=== PATIENT | male | born 1970 | race Caucasian/White ===

== ENCOUNTER 2025-01-06 15:43 | Day surgery (SDC) | payer OTHER, SELFPAY ==
[2025-01-06] VITALS (22 sets, daily range): BP systolic 90–138; BP diastolic 62–95; BMI 27.4
[2025-01-06 06:56] LABS: % Basophils 0.2 % (0-2); % Immature Granulocytes 0.2 % (0-0.5); % Lymphocytes 13.2 % (20.5-51.1); % Monocytes 8.7 % (1.7-9.3); % Neutrophils 75.7 % (42.2-75.2); Absolute Eosinophils 0.2 10^3/uL (0-0.7); Absolute Lymphocytes 1.1 10^3/uL (1.2-3.4); Absolute Monocytes 0.7 10^3/uL (0.1-0.6); Absolute Neutrophils 6.2 10^3/uL (1.4-6.5); Hematocrit 39.7 % (39.0-52.0); Hemoglobin 13.9 g/dL (13.0-18.0); Mean Corpuscular Hgb 31.9 pg (27.0-31.0); Mean Corpuscular Volume 91.1 fL (80.0-94.0); Nucleated Red Blood Cells % 0 % (-); Platelet Count 143 10^3/uL (130-400); Red Blood Cell Count 4.36 10^6/uL (4.70-6.10); Red Cell Dist. Width 11.9 % (11.5-14.5); White Blood Cell Count 8.2 10^3/uL (4.8-10.8)
[2025-01-06 07:13] LABS: ALT (SGPT) 47 U/L (0-50); AST (SGOT) 39 U/L (17-59); Albumin 4.3 g/dl (3.5-5.0); Alkaline Phosphatase 68 U/L (38-126); Blood Urea Nitrogen 19 mg/dl (9-20); Calcium 9.8 mg/dl (8.4-10.2); Carbon Dioxide 28 mmol/L (22-30); Chloride 106 mmol/L (98-107); Estimated Creatinine Clearance 121 ml/min; Glucose 168 mg/dl (70-99); Potassium 4.1 mmol/L (3.5-5.1); Sodium 143 mmol/L (135-145); Total Bilirubin 1.8 mg/dl (0.2-1.3); Total Protein 6.4 g/dl (6.3-8.2); eGFR > 60.00
--- NOTE | 2025-01-06 07:20 | ED.GENMED ---
History of Present Illness
General
Chief Complaint: Heart Rate Problem
Source: patient
Exam Limitations: none
Time Seen by Provider: 01/06/25 06:49
Nursing documentation reviewed up to this point in time: agreed with
History of Present Illness
History of Present Illness:
Patient with history of CAD, status post cardiac bypass surgery at [facility] 2 years ago, presents to ED after waking up this morning with 'tachycardia'. Pt states that his symptoms lasted approximately 2 hours, which is longer than
previously, but now has resolved spontaneously. Denies associated dizziness, shortness of breath, nausea, chest pain, or diaphoresis. Patient states that he has had number of similar symptoms over the past 10 months. He has spoken with his
nursing program coordinator on multiple occasions, and in fact has worn Holter monitor, during which time, he did not experience any symptoms. His nursing program coordinator has optimized his medications to alleviate his symptoms. Patient does state that his EF is 30%, which
did not improve with bypass surgery. He does experience shortness of breath with palpitations when ambulating to work. Denies fever or chills. Denies coughing. Denies recent change in medications or diet. Denies recent weight gain. Denies
increased leg swelling or pain. Denies recent travel or surgery within the past 12 months.
Past History
Past History
ED Past Medical History: HTN, Hypercholesterolemia, NIDDM, PA, Psychiatric (Anxiety, benzodiazepine abuse) and Other (Anxiety, diabetes, hyperlipidemia)
ED Past Surgical History: Cardiac (Stent)
Social History
Tobacco: Non-smoker
Alcohol: None
Drug: None
Personal: Single
Living: alone
Employment: Not employed
Family History
Family History: Diabetes and Other (Diabetes, lung cancer)
Review of Systems
Review of Systems
Allergies reviewed?: Yes
All Other Systems: ROS reviewed and negative except as documented in HPI and ROS
Constitutional: Reports no symptoms
Respiratory: Reports no symptoms
Cardiac: Reports palpitations
ABD/GI: Reports no symptoms
Musculoskeletal: Reports no symptoms
Skin: Reports no symptoms
Neurological: Reports no symptoms
Phy Exam
Physical Exam
Physical Exam:
Physical Exam
General: no apparent distress, not acutely ill. afebrile
Head: nc/at. eomi
Neck: supple. no meningeal signs.
Heart: s1/s2 regular rate and rhythm, no murmur.
Lungs: no acute respiratory distress. clear bilaterally
Abdomen: normal bowel sounds. not tender.
Neuro: alert and oriented x 3. no focal neurological deficits
Skin: no rash
Psychiatric: well kept. interactive and cooperative
Extremities: no edema. no calf tenderness.
Course
Orders/Labs/Results
Orders:
Orders
01/06/25 06:31
EKG [Electrocardiogram (*1)] Urgent
Reason for Study: Palpitations
EKG- Treatment ONCE
01/06/25 06:45
BNP [NT-proBNP] Urgent
Complete Blood Count/With Diff Urgent
Comprehensive Metabolic Panel Urgent
Magnesium Urgent
Comment: ADD ON
TSH Reflex To Free T4 Urgent
Comment: ADD ON
Troponin I Urgent
01/06/25 07:13
Add On- LAB Urgent
Tests Added?: magnesium, TSH to reflex T4
01/06/25 07:25
CR Chest - 2 Views Urgent
Comment:
Reason For Exam: sob w exertion
01/06/25 09:57
CARDIOLOGY CONSULT Urgent
Consulting Provider: Hannah Wilson
Was physician already notified: Yes
Reason for consult: CP/palpitations
01/06/25 11:39
Electrocardiogram (*1) Urgent
Reason for Study: Palpitations
EKG- Treatment ONCE
01/06/25 12:05
Metoprolol [Lopressor] 5 mg IV NOW STA
01/06/25 12:18
Echo 2D MMode Color/Doppler Routine
Reason for Study: CM, palpitations, CP
01/06/25 14:56
Heparin 1000 Units/500 ml [Heparin] 1,000 units in 500 ml .ROUTE .STK-MED
Heparin Sodium,Porcine/Ns/Pf [Heparin 2000 Units/1000 ml] 2,000 unit in 1,000 ml .ROUTE .STK-MED
Lidocaine HCl/Pf [Xylocaine-Mpf 1% Vial] 100 mg .ROUTE .STK-MED ONE
Nitroglycerin [Tridil] 1,500 mcg .ROUTE .STK-MED ONE
Verapamil Injectable [Isoptin/Verapamil Injection] 5 mg .ROUTE .STK-MED ONE
01/06/25 Dinner
Cholesterol Lowering
At Your Request: Full Participation
Does patient need a safe tray?: No
Cholesterol Lowering: Sodium, 2 Gram
01/06/25 15:24
Midazolam HCl [Versed] 2 mg .ROUTE .STK-MED ONE
01/06/25 15:25
Fentanyl Citrate/Pf [Sublimaze] 100 mcg .ROUTE .STK-MED ONE
Heparin 10,000 units .ROUTE .STK-MED ONE
01/06/25 15:43
Troponin I Urgent
01/06/25 15:52
Metoprolol [Lopressor] 5 mg .ROUTE .STK-MED ONE
01/06/25 16:22
Acetaminophen [Tylenol] 650 mg PO Q4HPRN PRN
Furosemide [Lasix] 20 mg IV NOW STA
01/06/25 16:23
Activity As Directed
Activity Level: Out of Bed- Ad Harleen
Activity Frequency: Ad Harleen
Grocery Specialist Procedure As Directed
Cardiac Cath Procedure: cardiac catheterization
Notify MD As Directed
Notify physician if: immediately for chest pain or bleeding from access site(s)
Radial Artery Hemostasis Method As Directed
Instructions:: 3 mL out at 1 hour post placement of band
3 mL out at 1 1/2 hours post placement of band
3 mL out at 2 hours post placement of band
Off at 2 1/2 hours post placement of band
If any oozing or hemotoma occurs:: re-inflate band and call provider
Site Checks As Directed
Check access site for bleeding/hematoma: Yes
Comment: on arrival, Q15min x4, Q30min x2, Q1 hr x2, Q2 hr x2, Q4 hr or per
protocol
Vascular Checks As Directed
Location: distal to access site - pulse check
Frequency: Other
Comment: on arrival, Q15min x4, Q30min x2, Q1 hr x2, Q2 hr x2, Q4 hr or per protocol
Vital Signs As Directed
Frequency: Other
Additional Instructions:: on arrival, Q15min x4, Q30min x2, Q1 hr x2, Q2 hr x2, then Q4 hr or per unit
protocol
01/06/25 16:24
Admit Patient As Directed
Co-Sign Provider:
Level of Care: Post Proc/Surg Recovery
Assign to:: IVU
Physician / Group: dca
Diagnosis: CAD/Chest pain/NSTEMI
Reason for Overnight Stay: Standard of Care
VTE Contraindication Routine
VTE Mechanical Device Contraindication: Low Risk- LOS < 2 days
Pharmocologic Contraindication: Low Risk- LOS < 2 days
Risk assessment completed and pt is low risk: Yes
PRN Pain Medication Management As Directed
May give lesser potent ordered pain med per pt: Yes
preference::
Protocol:: Medication orders for pain may be administered in a
manner that supports deferring to patient preference
when the pt is:
- Requesting an ordered lesser potent pain medication.
Least to most potent pain medications are defined
as: acetaminophen < NSAID < tramadol < opioids
(morphine, oxycodone, hydromorphone).
- Requesting a lesser dose of the same medication IF
ORDERED.
- Requesting a less intrusive route of administration
if both routes are prescribed by the provider (PO <
IV).
01/06/25 16:27
Dextrose 50%-Water [Dextrose 50% Syringe] 12.5 grams IV [id number] PRN
Glucagon [GlucaGen] 1 mg IM PRN PRN
Bedside Glucose Monitoring As Directed
Frequency: AC&HS
Additional Instructions:: Change to q6h if pt on TPN, tube feeding or not eating
01/06/25 16:30
Insulin Aspart Corrective Mod [Novolog Flexpen-Moderate Resistance] See Protocol SC AC
01/06/25 17:12
Lactate Level [Lactic Acid] Stat
01/06/25 18:00
Atorvastatin [Lipitor] 80 mg PO QPM
01/06/25 20:00
Sacubitril 24/Valsartan 26 [Entresto 24 mg/26 mg] 1 tab PO BID
01/06/25 22:56
Troponin I Routine
01/07/25
HF Check Daily Weights Video Routine
HF Limiting Fluids Video Routine
HF Limiting Sodium Video Routine
HF Recognizing Symptoms Video Routine
HF Taking Medicines Video Routine
HF What is it? Video Routine
HF When to Call for Help Video Routine
01/07/25 06:12
Basic Metabolic Panel IN AM
Cardiovascular Evaluation IN AM
Complete Blood Count/No Diff IN AM
Glycohemoglobin (HgbA1c) IN AM
Troponin I Urgent
01/07/25 08:00
Aspirin Chewable [Low Strength Aspirin] 81 mg PO DAILY
Dapagliflozin [Farxiga] 10 mg PO DAILY
Metoprolol Xl [Toprol Xl] 25 mg PO DAILY
01/07/25 09:27
Change Attending Physician As Directed
Change attending physician to: gurvinder mora
01/07/25 09:45
Furosemide [Lasix] 20 mg IV ONCE ONE
01/07/25 09:54
Clopidogrel Bisulfate [Plavix] 300 mg PO NOW STA
01/07/25 10:00
Code Status As Directed
Resuscitation Status: Full Code
01/07/25 10:02
DX Deep Vein Thrombosis Video Routine
01/07/25 12:00
Ezetimibe [Zetia] 10 mg PO NOON
01/07/25 14:02
Troponin I Routine
01/07/25 18:00
Enoxaparin Sodium [Lovenox] 40 mg SC QPM
01/07/25 20:00
Metoprolol Xl [Toprol Xl] 25 mg PO BID
01/08/25 08:00
Clopidogrel Bisulfate [Plavix] 75 mg PO DAILY
Abnormal Lab Results
01/06/25 01/06/25 01/06/25
06:45 15:43 22:00
RBC 4.36 L 10^6/uL
(4.70-6.10)
MCH 31.9 H pg
(27.0-31.0)
Absolute Lymphs (auto) 1.1 L 10^3/uL
(1.2-3.4)
Absolute Monos (auto) 0.7 H 10^3/uL
(0.1-0.6)
Neutrophils % 75.7 H %
(42.2-75.2)
Lymphocytes % 13.2 L %
(20.5-51.1)
Creatinine
Glucose 168 H mg/dl
(70-99)
Hemoglobin A1c
Total Bilirubin 1.8 H mg/dl
(0.2-1.3)
Troponin I 0.493 H* ng/ml 1.650 H* ng/ml
POC Glucose 200 H mg/dl
(70-99)
01/06/25 01/07/25 01/07/25
22:56 06:12 07:26
RBC 4.43 L 10^6/uL
(4.70-6.10)
MCH 31.8 H pg
(27.0-31.0)
Absolute Lymphs (auto)
Absolute Monos (auto)
Neutrophils %
Lymphocytes %
Creatinine 0.6 L mg/dL
(0.7-1.3)
Glucose 103 H mg/dl
(70-99)
Hemoglobin A1c 6.3 H %
(4.0-5.6)
Total Bilirubin
Troponin I 4.730 H* D ng/ml 8.480 H* D ng/ml
POC Glucose 107 H mg/dl
(70-99)
01/07/25 01/07/25
11:27 14:02
RBC
MCH
Absolute Lymphs (auto)
Absolute Monos (auto)
Neutrophils %
Lymphocytes %
Creatinine
Glucose
Hemoglobin A1c
Total Bilirubin
Troponin I 5.610 H* D ng/ml
POC Glucose 201 H mg/dl
(70-99)
01/07/25 06:12
01/07/25 06:12
Vital Signs
Initial and Last Documented VS:
Initial Vital Signs
Temp Pulse Resp BP Pulse Ox
98.2 F 66 20 138/78 98
01/06/25 06:35 01/06/25 06:35 01/06/25 06:35 01/06/25 06:35 01/06/25 06:35
Last Documented Vital Signs
Temp Pulse Resp BP Pulse Ox
98 F 66 18 113/77 100
01/07/25 12:09 01/07/25 12:08 01/07/25 12:09 01/07/25 12:08 01/07/25 12:09
MDM/Problems Addressed
MDM/Problems Addressed:
Patient noted to become tachycardic during observation in ED, along with subjective 'pop' sensation in his chest. Otherwise patient denies shortness of breath, nausea, dizziness, or diaphoresis. Repeat EKG confirms sinus tachycardia.
Patient evaluated by , cardiology. Plan to proceed with cardiac catheterization this afternoon. Recommends lopressor 5mg iv now.
*EKG
Interpreted by ED Provider?: Yes
EKG Intrepretation Date: 01/06/25
Heart Rate: 66
Rate: normal
Rhythm: sinus
[place]: normal axis
Ischemia: non-specific ST changes
*Critical Care Note
Total Time (30-74mins, 75-104mins- exclusive of procedures): Not Applicable
ED Attending Note
-
Portions of this chart may have been created with voice recognition software.� Occasional wrong word or��sound alike� substitutions may have occurred due to the inherent limitations of voice recognition software.
Discharge Plan
Departure
Patient Disposition: TRIMMER OPERATOR THREE KNIFE
Date of Disposition: 01/06/25
Time of Disposition: 12:08
Admit to: dental laboratory technician
Presentation/result/management discussed w/ accepting MD/DO: Darrius Rosenberg
Discharge Problem:
Abnormal cardiac enzyme level, Palpitations
Interventions
Interventions:
*Risk Screen - Suicide Last Done: 01/06/25 06:33
*General Assessment Last Done: 01/06/25 08:00
*Neglect/Abuse Screening Last Done: 01/06/25 08:00
*ED- Fall Risk Assessment Last Done: 01/06/25 08:00
*Nursing Disposition Last Done: 01/06/25 15:42
ED- Cardiac Assessment Last Done: 01/06/25 08:00
ED- Pulmonary Assessment Last Done: 01/06/25 08:00
Discharge Date and Time
Discharge Date/Time: 01/06/25 15:05
[2025-01-06 07:23] LABS: NT-proBNP 3220 pg/ml; Troponin I 0.493 ng/ml
[2025-01-06 09:17] LABS: TSH Reflex To Free T4 1.25 uIU/ml (0.47-4.68)
--- NOTE | 2025-01-06 10:58 | CON.CAR ---
Addendum entered and electronically signed by Nedra Akers PA-C 01/06/25 13:37:
Records from [facility] including ER visit 12/24/2024, office visit 11/10/2024, echo 03/24/2024 obtained and reviewed. He had CABG times �[facility] to [facility] and SVG to [facility] Dr. Noel. His prior left circumflex stent was noted to be occluded by cath
prior to bypass. As stated below he previously declined ICD. He also declined ZIO monitor at last outpatient office visit. He was previously on torsemide post CABG, however then admitted for DAWSON and dehydration and diuretic as well as Aldactone
were discontinued at that time. He is refused retrial of Aldactone. He previously was on LifeVest however could not tolerate and sent it back. He is on Toprol, Entresto, Jardiance, aspirin, Lipitor, Zetia. Of note he also did have some brief
postop atrial fibrillation which was felt to have resolved. He is not on anticoagulation. Echo from 03/24/2024: EF 30%, severe global hypokinesis, grade 2 diastolic dysfunction, RV function moderately reduced, mild MR, mild TR, mild RI.
Addendum entered and electronically signed by Hannah Wilson DO 01/06/25 13:19:
I saw and examined the patient.
The Dry Roaster's note was reviewed and I agree with the note.
Comment: Patient was seen and examined in ED 22 with cardiac PA. Rajan is a 54-year-old male with past medical history of CAD/PCI and CABG x [address] [facility] in 2021, ischemic cardiomyopathy with EF 30%, hypertension, hyperlipidemia, type 2
diabetes, history of noncompliance due to social and monetary concerns who presents to [facility] due to evaluation of intermittent tachycardia. He states that this has been occurring over the last 9 to 10 months, however has been becoming
more frequent over the last several weeks. He reports that he feels as though his heart is racing, however states it does not fear feel irregular. He reports the feeling of his heart squeezing. He reports sometimes it lasts only 5 to 10 minutes,
other times it last several hours. He has not had any loss of consciousness, however does report some lightheadedness and diaphoresis associated with the episodes. He states he did bring this up with his primary grid maker, Dr. Power at . [facility] and since the episodes were happening infrequently at that time, it was recommended that he consider increasing his metoprolol, which patient refused as he was concerned about being more fatigued. He was then seen for same
symptoms 12/24/2024 at [facility]. He reports that it took several hours but then his heart rate 'broke'. He reports he was not told he had any arrhythmias. He left AMA from [facility]. He reports the last several days he has had more
episodes lasting longer and more frequent. He has also had some associated chest and back pains. Then at 3 AM he awoke with an episode which lasted 2 hours and 10 minutes. It did resolve prior to him coming to the ER. He also reports noting some
swelling in his legs. He states he was previously offered a diuretic, however he refused as he did not want to pee more as he is already on Jardiance. He also previously refused defibrillator, and is fixated on the fact that his pumping function
did not improve post CABG. He lives in a hotel with his cat, and states he walks 1 mile to work every day. He is also concerned about admission due to financial difficulties this could cause. Troponin was 0.493. Cardiology consulted for
evaluation.
General: No acute distress, AAOX3
Heart: Regular, positive S1/S2, 2/6 SM
Lungs: CTA b/l, negative wheezes/rales/rhonchi
Abd: Positive BS, NT/ND, neg rebound/rigidity/guarding
Ext: + 1 edema
Neuro: nonfocal
Plan:
Episodes of chest discomfort with positive troponin and prior history of CABG x [address] [facility]
-Will arrange for left heart catheterization today. Patient is agreeable to this plan and understands if stent is placed he will need to be on dual antiplatelet therapy for at least 1 year.
-CABG OR report being requested in addition to cardiac records from [facility]
-He has medical assistance as well as insurance through his job and has had no difficulty getting his medications. A member of his uatsdin she goes to the pharmacy to picker / packer his medication since he does not drive.
-Repeat 2D echocardiogram.
-Trend troponins.
-Telemetry monitoring.
-Continue aspirin and statin.
Episodes of heart racing with no history of known atrial or ventricular arrhythmias
-Records from [facility] to be requested
-In the emergency department he had an episode of sinus tachycardia as well as PAT
-IV Lopressor 5 mg administered x 1
-Check TSH
-Monitor telemetry
Ischemic cardiomyopathy with a EF approximately 30% per last echo available for review
-Appears mildly volume overloaded
-proBNP 3220.
-Patient agreeable to IV Lasix during this hospitalization; will give a dose following cardiac catheterization and follow volume status
-Patient on Entresto and Jardiance
-Has previously declined ICD which was briefly reviewed in the ER and he admits that he has declined this therapy
-Follows with Dr. Conner, heart failure at [facility]
History of type 2 diabetes mellitus
-Management per medicine
-Hold metformin in preparation for left heart catheterization
Further recommendations following left heart catheterization as well as echo
Original Note:
Consultation
Consultation Request
Date/Time Consultation Performed: 01/06/25
Requesting Provider: Dr. Salmon
Performing Provider: Nedra Akers PA-C for Dr. Wilson
Reason for Consultation: elevated HR, elevated troponin
Medical History
-
Chief Complaint: elevated HR
History of Present Illness:
Patient is a 54-year-old male with past medical history of CAD status post CABG x [address] [facility] in 2021, ischemic cardiomyopathy with EF 30%, hypertension, hyperlipidemia, type 2 diabetes, history of noncompliance due to social and monetary
concerns who presents to [facility] due to evaluation of intermittent tachycardia. He states that this has been occurring over the last 9 to 10 months, however has been becoming more frequent over the last several weeks. He reports that
he feels as though his heart is racing, however states it does not fear feel irregular. He reports the feeling of his heart squeezing. He reports sometimes it lasts only 5 to 10 minutes, other times it last several hours. He has not had any loss
of consciousness, however does report some lightheadedness and diaphoresis associated with the episodes. He states he did bring this up with his primary grid maker, Dr. Power at [facility] and since the episodes were happening
infrequently at that time, it was recommended that he consider increasing his metoprolol, which patient refused as he was concerned about being more fatigued. He was then seen for same symptoms 12/24/2024 at [facility]. He reports that
it took several hours but then his heart rate 'broke'. He reports he was not told he had any arrhythmias. He left AMA from [facility]. He reports the last several days he has had more episodes lasting longer and more frequent. He has also had
some associated chest and back pains. Then at 3 AM he awoke with an episode which lasted 2 hours and 10 minutes. It did resolve prior to him coming to the ER. He also reports noting some swelling in his legs. He states he was previously offered
a diuretic, however he refused as he did not want to pee more as he is already on Jardiance. He also previously refused defibrillator, and is fixated on the fact that his pumping function did not improve post CABG. He lives in a hotel with his
cat, and states he walks 1 mile to work every day. He is also concerned about admission due to financial difficulties this could cause. Troponin was 0.493. Cardiology consulted for evaluation. He denies cardiac catheterization since his bypass
surgery. He denies recent use of stimulants, significant caffeine.
PMH:
CAD status post CABG x [address] [facility] in 2021
Ischemic cardiomyopathy with EF 30%
Hypertension
Hyperlipidemia
Type 2 diabetes
History of noncompliance due to social and monetary concerns
Past Medical History
Past Medical History: Other (in HPI)
Social History
Tobacco: Non-Smoker
Alcohol: None
Living: Other (in hotel)
Employment: Employed
Family History
Family History: CAD, Diabetes and Hypertension
Allergies / Home Medications
Allergy/AdvReac Type Severity Reaction Status Date / Time
No Known Allergies Allergy Verified 10/20/22 16:17
�Medication �Instructions �Recorded �Confirmed �Type
aspirin 81 mg tablet,delayed 81 mg PO DAILY Blood clot 08/16/22 08/16/22 History
release prevention/tx
atorvastatin 80 mg tablet 80 mg PO QPM High cholesterol 08/16/22 08/16/22 History
carvedilol 3.125 mg tablet 3.125 mg PO HS Blood pressure 08/16/22 08/16/22 History
lisinopril 2.5 mg tablet 2.5 mg PO DAILY Blood pressure 08/16/22 08/16/22 History
metformin 500 mg tablet 500 mg PO BID Diabetes 08/16/22 08/16/22 History
clopidogrel 75 mg tablet 75 mg PO DAILY #30 tabs 08/20/22 Rx
glimepiride 4 mg tablet 4 mg PO DAILY #30 tabs 08/20/22 Rx
amoxicillin 500 mg tablet 500 mg PO BID #20 tabs 10/20/22 Rx
Review of Systems
-
History Source: Patient
All other systems: Negative unless noted
Physical Exam
Vital Signs
Temp Pulse Resp BP Pulse Ox
98.4 F 62 13 113/78 99
01/06/25 07:11 01/06/25 09:30 01/06/25 09:30 01/06/25 09:00 01/06/25 09:30
Lab Results
01/06/25 06:45
01/06/25 06:45
Troponin I 0.493 ng/ml H* 01/06/25 06:45
Xmo-W-Asoradbxmqn Pept 3220 pg/ml 01/06/25 06:45
Physical Exam
General: No Apparent Distress and Comfortable
HEENT: Normocephalic, Anicteric and Moist Mucous Membranes
Respiratory: Clear and Non Labored Respirations
Cardiac: S1/S2 and Regular Rhythm
GI: Soft, Non Tender, Non Distended and Normal Bowel Sounds
Musculoskeletal: No Clubbing, No Cyanosis and Edema (1+ of B/L ankles)
Skin: Warm and Dry
Neuro: AO x 3
Impression / Plan
-
Primary Instrumentation Instructor:Dr. Power at [facility]
Primary Heart failure specialist: Dr. Conner [facility]
Assessment:
Presentation with intermittent heart racing
Elevated troponin
CAD status post CABG x [address] at [facility] in 2021
Ischemic cardiomyopathy with EF 30%
Hypertension
Hyperlipidemia
Type 2 diabetes
History of noncompliance due to social and monetary concerns
ECHO 08/19/22: EF 30 to 35%, LV severely dilated, global hypokinesis with inferior lateral, basal septal, basal inferior akinesis, stage I diastolic dysfunction, mild to moderate MR
Plan:
-Patient presents with intermittent episodes of heart racing, increasing in frequency and duration over the last 9 months. he reports over the last several days noting chest and back discomfort and diaphoresis associated with episodes. Trop 0.493.
History of CABG x2 at [facility] 2021.
-records requested for review from [facility]
-trend trops
-continue asa, statin
-check echo
-NPO for cardiac cath today
-follow on tele. would recommend increasing OP toprol from 25mg BID to 50mg BID if BP tolerates
-proBNP 3220. with LE edema. suspect component of CHF. would diurese post cath. suspect needs diuretic as OP
-awaiting official med reconciliation
-CM consult
Data Reviewed
-
EKG: Tracing Personally Visualized and interpreted
Radiology: Report Reviewed by me
Medical Tests (Nuc Med, Echo etc): Report Reviewed by me
Labs: Labs Reviewed by me
Old Records: Requested and Reviewed
[2025-01-06] MEDS: LOPRESSOR 5 MG IV (12:26)
[2025-01-06 17:22] LABS: Glucose - Point of Care 82 mg/dl (70-99)
[2025-01-06 17:39] LABS: Lactic Acid 0.8 mmol/L (0.7-2.0)
[2025-01-06] MEDS: NOVOLOG FLEXPEN-MODERATE RESISTANCE SC (17:46)
[2025-01-06] MEDS: LASIX 20 MG IV (17:49)
[2025-01-06] MEDS: LIPITOR 80 MG PO (17:49)
[2025-01-06] MEDS: ENTRESTO 24 MG/26 MG 1 TAB PO (19:41)
--- NOTE | 2025-01-06 19:47 | PTCARENOTE ---
Pt received post cardiac cath done via right radial artery. Radial band in place, no sign of bleeding or hematoma. Pt denied any discomfort but was very cognizant of his heart rate, sinus tach @ 115-120. Troponin level still rising ,
notified, will check next level at 23:00. Pt given lasix post procedure, diuresing well.
--- NOTE | 2025-01-06 19:49 | ITS.CL.CATH ---
Film Or Tape Librarian - Catheterization
Cardiac Catheterization
Procedure Report:
LEFT HEART CATHETERIZATION
Date of Procedure: January 06, 2025
Referring: Hannah Wilson
PROCEDURES:
1. Left heart catheterization, coronary angiogram.
2. Selective graft angiography.
3. Ultrasound-guided access.
4. Moderate sedation.
INDICATION: Concern for acute coronary syndrome
ACCESS: Left radial artery, 6 [place] sheath, and ultrasound-guided
Ultrasound was utilized for vascular access. The radial artery was visualized under ultrasound, and the vessel was patent and pulsatile. An image was stored permanently in the patient's medical record. Under direct ultrasound guidance, a 6 [place]
sheath was inserted into the artery using a micropuncture kit through a modified Seldinger technique.
HEMODYNAMICS : (mmHg)
AO (s/d) : 114/78
LV (s/d) : 115/17
LVEDP : 27
CORONARY FINDINGS
CORONARY FINDINGS
DOMINANCE: Right
LEFT MAIN: The left main artery is a large-caliber vessel with mild distal tapering of 10 to 20%. It gives rise to the left anterior descending artery and the left circumflex artery.
LEFT ANTERIOR DESCENDING: The left anterior descending artery is a medium to large caliber vessel with 100% occlusion in the mid vessel with distal vessel being perfused by the patent HOLLOWAY graft. Moderate to severe diffuse atherosclerotic plaque in
the distal to apical LAD. The LAD gives off 1 very small diffusely disease diagonal branch.
CIRCUMFLEX: The circumflex is 100% occluded on the proximal edge of the previously stented segment. Left circumflex territory being filled by patent saphenous vein graft to OM with significant diffuse [place] coronary disease.
RIGHT CORONARY ARTERY: The right coronary artery is a dominant vessel that has a 60-70% stenosis in its midportion. The PDA is small but patent. There is a medium caliber posterolateral branch that is 100% occluded proximally and fills via left to
right collaterals
GRAFT ANTIOGRAPHY:
1. HOLLOWAY to LAD is widely patent with [place] LAD with moderate to severe diffuse atherosclerotic plaque and otherwise very small caliber vessels.
2. Saphenous vein graft to OM: Graft is widely patent with moderate to severe diffuse atherosclerotic plaque in the [place] vessels which are also small caliber vessels.
SEDATION: 37 minutes of procedural sedation was utilized. An independent medical fee clerk was present to assist with and help manage the patient's level of consciousness and physiologic status.
RADIATION SUMMARY: Fluoro Time (min): 7.0, Dose (mGy): 530, DAP (Gy.cm2) : 7.7
Closure Device: Vascular band over left radial artery, 10 cc of air.
CONCLUSIONS
1. Significant multivessel coronary artery disease.
2. HOLLOWAY and saphenous vein graft are widely patent.
3. Elevated LVEDP at 27 mmHg.
RECOMMENDATIONS
1. For diffusely diseased small caliber [place] coronary artery disease, recommend aggressive medical therapy as there are no ideal options from a percutaneous intervention standpoint.
2. Aggressive management of cardiovascular risk factors.
3. Optimization of goal-directed medical therapy for ischemic cardiomyopathy.
4. Aggressive IV diuresis.
5. EP evaluation for possible atrial tachycardia.
6. Patient continues to refuse ICD similar to before.
Yelena Roldan MD, FACC, [facility]
--- NOTE | 2025-01-06 20:45 | PTCARENOTE ---
Patient received at change of shift sitting at the edge of the bed. Denies chest pain. Only complaint is feeling his heart racing. Sinus tach on the monitor. Oxygen saturation on room air 95-98% on room air. TR band removed from left radial cath
site without incident. Gauze and tegaderm applied. Radial pulses palpable. Call rose within reach. Plan of care discussed. Care ongoing.
[2025-01-06 22:02] LABS: Glucose - Point of Care 200 mg/dl (70-99)
[2025-01-07] VITALS (10 sets, daily range): BP systolic 92–113; BP diastolic 58–79; BMI 26.3
[2025-01-07 06:24] LABS: Hemoglobin 14.1 g/dL (13.0-18.0); Mean Corp Hgb Conc. 35.3 g/dL (33.0-37.0); Mean Corpuscular Hgb 31.8 pg (27.0-31.0); Mean Corpuscular Volume 90.3 fL (80.0-94.0); Mean Platelet Volume 8.8 fL (7.4-10.4); Platelet Count 151 10^3/uL (130-400); Red Blood Cell Count 4.43 10^6/uL (4.70-6.10); Red Cell Dist. Width 11.9 % (11.5-14.5); White Blood Cell Count 8.3 10^3/uL (4.8-10.8)
[2025-01-07 06:46] LABS: Blood Urea Nitrogen 19 mg/dl (9-20); Calcium 9.4 mg/dl (8.4-10.2); Carbon Dioxide 28 mmol/L (22-30); Chloride 106 mmol/L (98-107); Estimated Creatinine Clearance > 125 ml/min; Glucose 103 mg/dl (70-99); HDL Cholesterol 36 mg/dl; LDL Cholesterol, Calculated 47 mg/dl; Potassium 3.9 mmol/L (3.5-5.1); Sodium 141 mmol/L (135-145); Total Cholesterol 93 mg/dl (50-199); Triglyceride 51 mg/dl (10-149); Very Low Density Lipoprotein 10 mg/dl (0-30); eGFR > 60.00
[2025-01-07 07:27] LABS: Glucose - Point of Care 107 mg/dl (70-99)
[2025-01-07] MEDS: ENTRESTO 24 MG/26 MG PO ×2 (08:00→22:42)
[2025-01-07] MEDS: NOVOLOG FLEXPEN-MODERATE RESISTANCE SC ×2 (08:24→17:20)
[2025-01-07] MEDS: FARXIGA 10 MG PO (08:25)
[2025-01-07] MEDS: LOW STRENGTH ASPIRIN 81 MG PO (08:25)
[2025-01-07] MEDS: TOPROL XL 25 MG PO ×2 (08:25→20:44)
--- NOTE | 2025-01-07 09:27 | HPS.HSE ---
Family Physician
-
Family Physician: GIULIA Sands
Chief Complaint
-
Palpitations and chest discomfort
History of Present Illness
54 y/o M with PMHx:
CAD s/p CABG x 2
DM2
Chronic HFrEF/ICM, EF 30%, declined ICD in the past, was on Lifevest but could not tolerate it
Prior diagnosis of Sinus Tachy
Essential hypertension
Hyperlipidemia
h/o medical noncompliance
who presented 01/06/25 with CC palpitations and chest discomfort. He reports that over the last 9 to 10 months he has been having intermittent tachycardia. He could sense his heart racing but did not note any sensation of the rhythm being irregular.
He felt chest tightness. States that sometimes these episodes last 5 to 10 minutes but at other times they can last for hours. Sometimes he has some lightheadedness and diaphoresis with these episodes but denies any syncope of note the patient
has a history of medical noncompliance. He has declined ICD in the past. He was also on a LifeVest in the past but cannot tolerated and return the LifeVest. He was recently treated at [facility]. His slubber tender, Dr. Power,
recommending increasing his metoprolol but he refused due to concerns that it would make him more tired. The patient left AGAINST MEDICAL ADVICE from [facility]. On January 07, 2025 around 3 AM he had an episode of tachycardia that lasted over 2
hours. This awoke him from sleep. He presented to [facility] for this reason. January 06, 2025 the patient underwent cardiac catheterization that showed [place] coronary disease. No intervention was performed. Case discussed
with cardiology. Patient is currently being diuresed for acute on chronic heart failure with reduced ejection fraction.
Medical History
Past Medical History
Past Medical History: Reports Other (CAD s/p CABG x 2 DM2 Chronic HFrEF/ICM, EF 30%, declined ICD in the past, was on Lifevest but could not tolerate it Prior diagnosis of Sinus Tachy Essential hypertension Hyperlipidemia h/o medical noncompliance)
Past Surgical History: Reports Other (CABG, otherwise N/A)
Social History
Tobacco: Non-smoker
Alcohol: None
Drug: None
Family History
Family History: Not pertinent
Allergies / Home Medications
Allergies reflects when Allergies were last updated in [employer].
Home Medications with original date entered in [employer]
Allergy/Medication List:
Allergies
Allergy/AdvReac Type Severity Reaction Status Date / Time
No Known Allergies Allergy Verified 10/20/22 16:17
Home Medications
atorvastatin 80 mg tablet 80 mg PO QPM High cholesterol 08/16/22
metformin 500 mg tablet 500 mg PO BID Diabetes 08/16/22
aspirin 325 mg tablet 325 mg PO DAILY Blood Clot Prevention/Tx 01/06/25
empagliflozin 25 mg tablet (Jardiance) 25 mg PO DAILY Diabetes 01/06/25
ezetimibe 10 mg tablet 10 mg PO NOON High Cholesterol 01/06/25
ibuprofen 800 mg tablet 800 mg PO Q8HPRN PRN moderate pain 01/06/25
metoprolol succinate 25 mg tablet,extended release 24 hr 25 mg PO DAILY Heart Disease/Condition 01/06/25
sacubitril 24 mg-valsartan 26 mg tablet (Entresto) 1 tab PO BID Heart Disease/Condition 01/06/25
Review of Systems
-
History Source: Patient
A 12 point ROS was completed and negative except as noted: Yes
Physical Exam
Vital Signs
Vital Signs
Temp Pulse Resp BP Pulse Ox
97.4 F 77 18 104/79 97
01/07/25 07:28 01/07/25 08:00 01/07/25 07:28 01/07/25 07:28 01/07/25 08:20
Physical Exam
General: Other (.)
Laboratory Results
-
01/07/25 06:12
01/07/25 06:12
Laboratory Results
Lactic Acid 0.8 mmol/L (0.7-2.0) 01/06/25 17:12
Total Bilirubin 1.8 mg/dl (0.2-1.3) H 01/06/25 06:45
AST 39 U/L (17-59) 01/06/25 06:45
ALT 47 U/L (0-50) 01/06/25 06:45
Alkaline Phosphatase 68 U/L (38-126) 01/06/25 06:45
Troponin I 8.480 ng/ml H* D 01/07/25 06:12
Impression/Plan
-
Gen: NAD, AAOx3.
Eyes: EOMI, PERRLA, no scleral icterus.
Neck: supple.
CV: RRR, +S1/S2, no m/r/g.
Resp: CTAB, no rales, wheezes, or rhonchi.
Abd: +BS, soft, NT, ND
Skin: No rashes. trace ankle edema
Neuro: CN 2-12 intact, non-focal.
Psych: Normal mood and affect.
NSTEMI:
-s/p C 01/06/25 with negative coronary disease, no intervention performed. [facility] as per discussion with cardiology.
-cont ASA/Plavix/statin/BB
Acute on chronic HFrEF:
-echo done yesterday, read pending
-cont GDMT noting that this is limited by pt's medical noncompliance
-cont Entresto/Jardiance/BB
-pt continues to refuse ICD
-Lasix 20mg IV given today
Tachycardia:
-Case discussed with cardiology. Previously it was reported that the patient had sinus tachycardia although he has abrupt onset and end of his tachycardia. EP to see the patient.
-Monitor on telemetry
-cont BB
DM2:
-SSI/accuchecks/diabetic diet
-a1c 6.3%
Essential HTN:
-cont Entresto/BB
HLD:
-cont statin/Zetia
FULL/Lovenox
[2025-01-07 09:30] LABS: Glycohemoglobin (HgbA1c) 6.3 % (4.0-5.6)
--- NOTE | 2025-01-07 09:38 | W.PN.CARDCBS ---
Addendum entered and electronically signed by Nedra Akers PA-C 01/07/25 10:26:
reviewed tele with EP, felt to be most consistent with an atrial tachycardia. toprol increased to 25mg BID. follow on tele.
Addendum entered and electronically signed by Santana Crabtree MD 01/07/25 10:07:
I saw and examined the patient.
The SOUBRETTE or PA's note was reviewed and I agree with the note.
Comment: General: Well developed, well nourished in NAD.
Neck: Supple, no JVD, HJR, carotids +2 B/L, no bruits bilaterally.
Heart: Non displaced PMI, RRR, no murmurs, No S3, S4, no rubs.
Lungs: Scattered rhonchi
Extremities: No clubbing, cyanosis or edema bilaterally.
Neuro: Grossly nonfocal, awake, alert and oriented x3.
He feels well. He feels he has taken a lot of fluid off. He wishes to be discharged by Friday to take care of his cat. Will continue IV Lasix. Telemetry with brief episodes of likely atrial tachycardia and will review with EP. Will increase
Toprol. Will add Plavix. Check echocardiogram.
Original Note:
Today's Communication / Plan
-
Continue diuresis
Follow on telemetry. EP to review. Consider increasing beta-keenan
Add Plavix
Echo pending
Impression / Plan
-
Primary Marketing Research Coordinator:Dr. Power at [facility]
Primary Heart failure specialist: Dr. Conner [facility]
Assessment:
Presentation with intermittent heart racing
Intermittent tachycardia, concern for atrial tachycardia
Acute HFrEF
NSTEMI
CAD
status post LCx stent 2020
prior LCx stent occluded by cath 2022
status post CABG x 2 HOLLOWAY to LAD and SVG to OM1 at [facility] in 08/2023, Dr. Noel
Brief post op afib without known recurrence
Ischemic cardiomyopathy with EF 30%
Hypertension
Hyperlipidemia
Type 2 diabetes
History of noncompliance due to social and monetary concerns
ECHO 08/19/22: EF 30 to 35%, LV severely dilated, global hypokinesis with inferior lateral, basal septal, basal inferior akinesis, stage I diastolic dysfunction, mild to moderate MR
Plan:
- Patient presented with intermittent heart racing
- He had recent ER visit to [facility] 12/24 and this was felt to be sinus tachycardia. On review of telemetry overnight, he has very clear starting and stopping points and when in tachycardia it is pegged and 110-120 range. Will review with EP.
Have high suspicion for atrial tachycardia versus atypical atrial flutter. would attempt to increase BB. not presently on OAC. follow on tele
- trop up to 8, trend to peak. Status post cardiac catheterization 01/06, Prior bypass grafts are patent with severe [place] vessel disease, no intervention required, suspected small vessel disease. Continue aspirin. add plavix
- LDL 47. continue statin, zetia
- proBNP 3220 and wedge was elevated at 27 by cath. s/p 20mg IV lasix 01/06. will give another 20mg IV lasix today. likely needs daily diuretic on DC however he has been hesitant to do this due to concern for frequent urination. Cr stable
- CHF education
- continue BB, entresto, jardiance. consider addition of aldactone, although he has history of DAWSON/dehydration in setting of being on both aldactone and diuretic in past.
- echo pending
- he has previously refused an ICD. was unable to tolerate lifevest
- d/w nursing. d/w hospitalist
Progress Note - Marketing Research Coordinator
Subjective
Date of Service: January 07, 2025
Reports remains with some ankle edema. No shortness of breath. Remains with intermittent palpitations
Objective
Labs:
01/07/25 06:12
01/07/25 06:12
Labs
Hgb 14.1 g/dL (13.0-18.0) 01/07/25 06:12
Hct 40.0 % (39.0-52.0) 01/07/25 06:12
Plt Count 151 10^3/uL (130-400) 01/07/25 06:12
Sodium 141 mmol/L (135-145) 01/07/25 06:12
Potassium 3.9 mmol/L (3.5-5.1) 01/07/25 06:12
BUN 19 mg/dl (9-20) 01/07/25 06:12
Creatinine 0.6 mg/dL (0.7-1.3) L 01/07/25 06:12
Glucose 103 mg/dl (70-99) H 01/07/25 06:12
Troponins
01/06/25 01/06/25 01/06/25
06:45 15:43 22:56
Troponin I 0.493 H* 1.650 H* 4.730 H* D
01/07/25
06:12
Troponin I 8.480 H* D
Vital Signs and I&O:
Vital Signs
Temp Pulse Resp BP Pulse Ox
97.4 F 77 18 104/79 97
01/07/25 07:28 01/07/25 08:00 01/07/25 07:28 01/07/25 07:28 01/07/25 08:20
Vital Signs
Temp Pulse Resp BP Pulse Ox
97.4 F 77 18 104/79 97
01/07/25 07:28 01/07/25 08:00 01/07/25 07:28 01/07/25 07:28 01/07/25 08:20
Intake & Output
01/05/25 01/06/25 01/07/25 01/08/25
07:59 07:59 07:59 07:59
Intake Total 120 / 120
Output Total 2049
Balance -2049 120 / 120
Physical Exam
Physical Exam
GEN: No distress, awake, alert, oriented x3
HEENT: supple, anicteric, mmm, EOMI
LUNGS: CTA bilaterally, no wheezes/rales
CV: Reg, S1/S2, no murmur
ABD: soft, BS+, NT/ND
EXT: No cyanosis, clubbing. 1+ edema of bilateral lower extremity
NEURO: Gross non-focal
SKIN: Warm, pink, dry. No rash
[2025-01-07] MEDS: PLAVIX 300 MG PO (10:28)
[2025-01-07] MEDS: LASIX 20 MG IV (10:29)
--- NOTE | 2025-01-07 11:07 | CM ---
Chart reviewed. Patient is independent of ADLS, lives alone in a Motel Room, 1st floor, 1 MERCED, 0 DME. Plan is for the patient to return home. CM to follow
[2025-01-07 11:28] LABS: Glucose - Point of Care 201 mg/dl (70-99)
[2025-01-07] MEDS: NOVOLOG FLEXPEN-MODERATE RESISTANCE 3 UNITS SC (11:28)
[2025-01-07] MEDS: ZETIA 10 MG PO (11:54)
[2025-01-07 17:11] LABS: Glucose - Point of Care 103 mg/dl (70-99)
[2025-01-07] MEDS: LIPITOR 80 MG PO (17:35)
[2025-01-07] MEDS: LOVENOX 40 MG SC (17:36)
--- NOTE | 2025-01-07 18:20 | PTCARENOTE ---
Pt OOB walking frequently without problem. Troponin level peaked at 8.48. Telemetry shows sinus rhythm @60's all day, no episodes of atrial tachycardia, toprol dose increased. Pt states understanding of plan of care. Pt encouraged to learn about CHF
with his lower EF. Morning dose of Entresto held for low BP and big diuresis with lasix.
[2025-01-07 21:29] LABS: Glucose - Point of Care 166 mg/dl (70-99)
--- NOTE | 2025-01-07 22:00 | PTCARENOTE ---
Rec'd pt at change of shift. Pt AAO*3 but anxious, VSS, and SR on TELE monitor in the 60's. Pt reports having heart racing sensation last night. No variations or alarms noted on TELE monitor however at this time. Pt denies having any pain or
discomfort. Explained plan of care to pt and pt verbalizes anxiety and concern for possible ICD placement in the future. Pt now resting with call rose in reach and plan of care ongoing. See MAR and flowchart for full pt care and assessment.
--- NOTE | 2025-01-07 22:42 | PTCARENOTE ---
20:00 dose of Entresto held due to low bp. GIULIA Armas notified and provided order to hold 20:00 dose. Pt updated and plan of care ongoing.
[2025-01-08 04:40] VITALS: BP 116/85
[2025-01-08 04:44] VITALS: BMI 26.5
[2025-01-08 07:12] LABS: Glucose - Point of Care 119 mg/dl (70-99)
[2025-01-08] MEDS: NOVOLOG FLEXPEN-MODERATE RESISTANCE SC (07:36)
--- NOTE | 2025-01-08 08:10 | W.PN.HOSP.TC ---
Today's Communication/Plan
-
d/c
Assessment / Plan
Assessment / Plan
Gen: NAD, AAOx3.
Eyes: EOMI, PERRLA, no scleral icterus.
Neck: supple.
CV: remains RRR, +S1/S2, no m/r/g.
Resp: remains CTAB, no rales, wheezes, or rhonchi.
Abd: +BS, soft, NT, ND
Skin: No rashes. very trace ankle edema
Neuro: CN 2-12 intact, non-focal.
Psych: Normal mood and affect.
NSTEMI:
-s/p LHC 01/06/25 with negative coronary disease, no intervention performed. Official report will be in [facility] today as per discussion with cardiology.
-cont ASA/Plavix/statin/BB
Acute on chronic HFrEF:
-echo done yesterday, read pending
-cont GDMT noting that this is limited by pt's medical noncompliance
-cont Entresto/Jardiance/BB
-pt continues to refuse ICD
-s/p IV Lasix
-d/c on Lasix 40mg PO daily
Tachycardia:
-EP reviewed tele which showed A-tach
-BB increased
DM2:
-SSI/accuchecks/diabetic diet
-a1c 6.3%
Essential HTN:
-cont Entresto/BB
HLD:
-cont statin/Zetia
FULL/Lovenox
Medically cleared for discharge as per discussion with Dr. Crabtree.
Total time spent on d/c = 33 min. This included today's physical exam, progress note, review of laboratory and diagnostic data, preparation of discharge documents and prescriptions, and discussions about the pt's hospital course and discharge plan
with the patient and other medical appliance maker involved in the patient's care.
Anticipated Discharge: Today
Subjective/Interval History
-
Date of Service: January 08, 2025
No new complaints.
Objective Data
-
Vital Signs:
Vital Signs
Temp Pulse Resp BP Pulse Ox
97.6 F 69 16 116/85 96
01/08/25 07:23 01/08/25 04:40 01/08/25 07:23 01/08/25 04:40 01/08/25 07:23
I&O
01/07/25 01/08/25 01/09/25
06:59 06:59 06:59
Intake Total /
Output Total 2049
Balance -2049 / -2049 840 / 840
[2025-01-08] MEDS: FARXIGA 10 MG PO (08:29)
[2025-01-08] MEDS: LOW STRENGTH ASPIRIN 81 MG PO (08:29)
[2025-01-08] MEDS: PLAVIX 75 MG PO (08:29)
[2025-01-08] MEDS: TOPROL XL 25 MG PO (08:29)
[2025-01-08] MEDS: ENTRESTO 24 MG/26 MG 1 TAB PO (08:29)
[2025-01-08] MEDS: LASIX 40 MG PO (08:29)
--- NOTE | 2025-01-08 08:33 | W.PN.CARDCBS ---
Today's Communication / Plan
-
Stable cardiology status for discharge on Lasix 40 mg daily
Follow-up at [facility]
Discussed with primary service
Impression / Plan
-
Primary Front End Loader Operator:Dr. Power at [facility]
Primary Heart failure specialist: Dr. Conner [facility]
Assessment:
Presentation with intermittent heart racing
atrial tachycardia
Acute HFrEF
NSTEMI/peak troponin 8.5/catheterization 01/06/25 with stable CAD
CAD
status post LCx stent 2020
prior LCx stent occluded by cath 2022
status post CABG x 2 HOLLOWAY to LAD and SVG to OM1 at [facility] in 08/2023, Dr. Noel
Brief post op afib without known recurrence
Ischemic cardiomyopathy with EF 30%
Hypertension
Hyperlipidemia
Type 2 diabetes
History of noncompliance due to social and monetary concerns
Echocardiogram 01/06/2025: Ejection fraction 15 to 20%, global hypokinesis with worse hypokinesis in the inferior and inferolateral arenas, mild to moderate MR, PA systolic 55 mmHg
Catheterization 01/06/2025: Significant multivessel coronary disease, HOLLOWAY and vein graft are widely patent, elevated LVEDP at 27 mmHg
ECHO 08/19/22: EF 30 to 35%, LV severely dilated, global hypokinesis with inferior lateral, basal septal, basal inferior akinesis, stage I diastolic dysfunction, mild to moderate MR
Plan:
He wishes to be discharged to go take care of his cat
He has been on room air
Will change to Lasix 40 mg daily and check renal profile in 1 week
He has follow-up with his outpatient heart failure specialist at [facility] Dr. Conner
Atrial tachycardia appears to have been controlled on higher dose of Toprol
Plavix has been added
Refused an ICD. was unable to tolerate lifevest
Progress Note - Front End Loader Operator
Subjective
Date of Service: January 08, 2025
No chest pain or shortness of breath
Objective
Labs:
01/07/25 06:12
01/07/25 06:12
Labs
Hgb 14.1 g/dL (13.0-18.0) 01/07/25 06:12
Hct 40.0 % (39.0-52.0) 01/07/25 06:12
Plt Count 151 10^3/uL (130-400) 01/07/25 06:12
Sodium 141 mmol/L (135-145) 01/07/25 06:12
Potassium 3.9 mmol/L (3.5-5.1) 01/07/25 06:12
BUN 19 mg/dl (9-20) 01/07/25 06:12
Creatinine 0.6 mg/dL (0.7-1.3) L 01/07/25 06:12
Glucose 103 mg/dl (70-99) H 01/07/25 06:12
Troponins
01/06/25 01/06/25 01/06/25
06:45 15:43 22:56
Troponin I 0.493 H* 1.650 H* 4.730 H* D
01/07/25 01/07/25
06:12 14:02
Troponin I 8.480 H* D 5.610 H* D
Vital Signs and I&O:
Vital Signs
Temp Pulse Resp BP Pulse Ox
97.6 F 68 16 111/78 96
01/08/25 07:23 01/08/25 08:29 01/08/25 07:23 01/08/25 08:29 01/08/25 07:23
Vital Signs
Temp Pulse Resp BP Pulse Ox
97.6 F 68 16 111/78 96
01/08/25 07:23 01/08/25 08:29 01/08/25 07:23 01/08/25 08:29 01/08/25 07:23
Intake & Output
01/06/25 01/07/25 01/08/25 01/09/25
06:59 06:59 06:59 06:59
Intake Total 0 / 0
Output Total 2049
Balance -2049 / -2049 840 / 0
Physical Exam
Physical Exam
General: Well developed, well nourished in NAD.
Neck: Supple, no JVD, HJR, carotids +2 B/L, no bruits bilaterally.
Heart: Non displaced PMI, RRR, no murmurs, No S3, S4, no rubs.
Lungs: Clear to auscultation bilaterally, no wheeze, rhonchi, rubs bilaterally,
normal expiratory phase.
Extremities: No clubbing, cyanosis or edema bilaterally.
Neuro: Grossly nonfocal, awake, alert and oriented x3.
[2025-01-08 09:26] VITALS: BP 111/69
--- NOTE | 2025-01-08 10:19 | PTCARENOTE ---
Patient fully alert and oriented, ambulates in room independently. Denies pain. Pulses palpable in upper and lower extremities, doppler used for lower extremities due to pitting edema. Lungs clear bilateral. NSR. PIV removed. Discharge instructions
thoroughly read, brought down to vehicle by RN via wheelchair. Discharged at 10:00.
--- NOTE | 2025-01-08 15:01 | W.DCSUMMARY ---
Discharge Summary
Discharge Data
Date of Admission: 01/06/25
Date of Discharge: 01/08/25
-
Pending Results: No
Hospital Course
Primary diagnoses:
Acute Non-ST elevation myocardial infarction
Acute on chronic heart failure with reduced ejection fraction
Atrial tachycardia
Secondary diagnoses:
Type 2 diabetes mellitus
Essential hypertension
Hyperlipidemia
Consultants:
Cardiology
Imaging/Procedures:
LHC:
1. Significant multivessel coronary artery disease.
2. HOLLOWAY and saphenous vein graft are widely patent.
3. Elevated LVEDP at 27 mmHg.
Echo:
1. Left ventricle is moderately dilated with severely reduced left ventricular
systolic function. Estimated left ventricular ejection fraction is 15 to 20%
by Weinstein's method. There is global hypokinesis with worse hypokinesis in the
inferior and inferolateral arenas. Stage II diastolic dysfunction, suggestive
of abnormal relaxation and increased filling pressures.
2. Normal right ventricular size and systolic function.
3. Mild to moderate mitral regurgitation.
4. Estimated pulmonary artery systolic pressure is 55 mmHg, assuming a right
atrial pressure of 8 mmHg.
5. No pericardial effusion.
54-year-old male who presented with chief complaints of palpitations and chest discomfort as outlined H&P done on admission. Hospital course by problem was:
NSTEMI: Patient's troponin peaked at 8.480. He underwent left heart cath as above. He had zuni coronary disease and no intervention was performed. His beta-keenan was increased. He was started on Plavix. Statin and aspirin were continued.
Acute on chronic HFrEF: Due to ischemic cardiomyopathy. Echocardiogram above. Ejection fraction was worse than prior at 15 to 20%. Patient received IV Lasix while hospitalized. He was started on Lasix 40mg PO daily. The patient continued to
refuse ICD/LifeVest.
Tachycardia: EP reviewed tele which showed A-tach. The patient's beta-keenan was increased.
Discharge Plan
-
Patient Disposition: Home (Routine Discharge)
Discharge Diagnosis/Procedures: Non-ST elevation myocardial infarction, acute on chronic heart failure with reduced ejection fraction, cardiac cath
Diet: Low Cholesterol and 2 Gram Sodium
Additional Diets: Fluid restrict to 1200 cc/day
Activity: As tolerated
Driving Restrictions: No driving for 24 hours
Blood Work: BMP in 1 week, prescription from PCP
Specialty Instructions: Weigh Daily- Call MD for wt gain/loss 3 lbs overnight/5 lbs in 1 week
Stand Alone Forms: DC Instructions- Cath/EP Lab
Referrals:
Suki Nagy CRNP [Family Provider] - in one to two months
Catherine Power MD [Non-Admitting Privileges] - in two to four weeks
Prescriptions:
New
furosemide 40 mg Tablet
40 mg PO DAILY Qty: 30 0RF
clopidogrel 75 mg Tablet
75 mg PO DAILY Qty: 30 0RF
aspirin 81 mg Tablet,Chewable
81 mg PO DAILY Qty: 0 0RF
metoprolol succinate 25 mg Tablet Extended Release 24 Hr
25 mg PO BID Qty: 60 0RF
Continued
metformin 500 mg tablet
500 mg PO BID
atorvastatin 80 mg tablet
80 mg PO QPM
ezetimibe 10 mg tablet
10 mg PO NOON
Jardiance 25 mg tablet
25 mg PO DAILY
Entresto 24-26 mg tablet
1 tab PO BID
Discontinued
aspirin 325 mg Tablet
325 mg PO DAILY
ibuprofen 800 mg tablet
800 mg PO Q8HPRN PRN (Reason: moderate pain)
metoprolol succinate 25 mg tablet extended release 24 hr
25 mg PO DAILY
Discharge Orders:
Discharge Patient (As Directed); Ordered 01/08/25
Ordered By: Pernell Hernandez
Care Plan Goals
Care Plan Goals:
Problem: Readiness for enhanced knowledge related to diagnosis and treatment plan
Goal: Understand your diagnosis and treatment plan needs, including medications if applicable.
Instructions: Know your diagnosis, underlying causes and treatment plan options, including medications if applicable. Consult with your health care team to learn about your diagnosis and treatment plan, including medications if applicable.
Discharge Date and Time
Discharge Date/Time: 01/08/25 10:00
Print Language: BRAZILIAN
== END 2025-01-08 10:00 | disposition home or self-care (01) ==
LOC: CATH 15:43
PROVIDERS: Emergency Medicine; Internal Medicine Cardiovascular Disease; Nurse Practitioner Adult Health; Physician Assistant; ATTENDING PHYSICIAN Internal Medicine; CONSULT PHYSICIAN Internal Medicine Cardiovascular Disease; EMERGENCY PHYSICIAN Emergency Medicine; FAMILY PHYSICIAN Registered Nurse
DX: I21.4 Non-ST elevation (NSTEMI) myocardial infarction (principal); I25.10 Atherosclerotic heart disease of native coronary artery without angina pectoris; I50.23 Acute on chronic systolic (congestive) heart failure; I47.19 Other supraventricular tachycardia; E11.8 Type 2 diabetes mellitus with unspecified complications; Z82.49 Family history of ischemic heart disease and other diseases of the circulatory system; E78.5 Hyperlipidemia, unspecified; Z95.1 Presence of aortocoronary bypass graft; Z95.5 Presence of coronary angioplasty implant and graft; Z79.02 Long term (current) use of antithrombotics/antiplatelets; E78.00 Pure hypercholesterolemia, unspecified; Z83.3 Family history of diabetes mellitus; Z80.1 Family history of malignant neoplasm of trachea, bronchus and lung; F41.9 Anxiety disorder, unspecified
CPT/HCPCS: 71046; 80048; 80053; 80061; 82962; 83036; 83605; 83735; 83880; 84443; 84484; 85025; 85027; 93005; 93306; 93459; 99152; 99153; 99285; C1894; Q9967

== ENCOUNTER 2025-09-08 06:59 | Emergency (ER) | payer OTHER, SELFPAY ==
--- NOTE | 2025-09-08 08:32 | ED.GENMED ---
History of Present Illness
General
Chief Complaint: Back Pain
Source: patient
Exam Limitations: none
Time Seen by Provider: 09/08/25 08:12
Nursing documentation reviewed up to this point in time: agreed with
History of Present Illness
History of Present Illness:
Patient is a 54-year-old male with past medical history of heart failure, ME bypass surgery presents to the ER for evaluation. Patient reports he started with right low back pain into his hip about 1 week ago pain has been getting worse. He has
been taken ibuprofen without relief and reports ibuprofen will typically work for him. He denies any radiation to his leg. He denies any bowel or bladder incontinence. He denies any lower extremity weakness. He denies any abdominal pain. He
denies any nausea vomiting fever chills urinary frequency urgency. Denies any hematuria.
He denies any rash. He reports pain is worse with laying in bed seems better with walking around.
He denies any injury.
Past History
Past History
ED Past Medical History: HTN, Hypercholesterolemia, NIDDM, ME, Psychiatric (Anxiety, benzodiazepine abuse) and Other (Anxiety, diabetes, hyperlipidemia)
ED Past Surgical History: Cardiac (Stent)
Social History
Tobacco: Non-smoker
Alcohol: None
Drug: None
Personal: Single
Living: alone
Employment: Not employed
Family History
Family History: Diabetes and Other (Diabetes, lung cancer)
Phy Exam
General Physical Exam
General Presentation: no apparent distress
General age: appears stated age
General Skin: warm and dry
General Habitus: normal
General Mental: alert
General Hydration: appears well hydrated
Cardiovascular Exam
Cardiovascular Exam: regular rate/rhythm, no murmur and normal peripheral pulses
Pulmonary Exam
Pulmonary Exam: lungs clear and no respiratory distress
Neurological Exam
Neurological Exam: alert, oriented x3 and other (Intact and station of bilateral lower extremities normal dorsiflexion plantarflexion ambulatory with a steady gait)
Musculoskeletal Exam
Musculoskeletal Exam: full ROM and other (No midline bony tenderness to thoracic or lumbar region no CVA tenderness right minimal amount of redness to right paralumbar region(patient reports to use ice to the area) tender to the SI joint region and
sciatic region, full range of motion to hip, no rash )
Skin Exam
Skin Exam: normal color and warm/dry
Psychiatric Exam
Psychiatric Exam: normal mood/affect
Course
Orders/Labs/Results
Orders:
Orders
09/08/25 08:30
Lumbar Spine Complete, 4 View [CR Lumbar Spine Comp Min 4 Vw*] Urgent
Comment:
Reason For Exam: pain
09/08/25 08:31
Acetaminophen [Tylenol] 1,000 mg PO NOW STA
Dexamethasone Sod Phosphate [Decadron] 10 mg IM NOW STA
Lidocaine [Lidocaine 4% Patch] 1 patch TOPICAL NOW STA
Apply Lidocaine patch(s) to:: right lower back/hip
Hip, Right 2-3 Views [CR Hip - RT w/wo Pel 2-3 Vw*] Urgent
Comment:
Reason For Exam: pain
Include a pelvis x-ray?: Yes
Vital Signs
Initial and Last Documented VS:
Initial Vital Signs
Temp Pulse Resp Pulse Ox
98.1 F 62 16 98
09/08/25 07:11 09/08/25 07:11 09/08/25 07:11 09/08/25 07:11
Last Documented Vital Signs
Temp Pulse Resp BP Pulse Ox
98 F 54 18 130/89 99
09/08/25 08:56 09/08/25 08:56 09/08/25 08:56 09/08/25 08:56 09/08/25 08:56
MDM/Problems Addressed
MDM/Problems Addressed:
Symptoms are reticularis pain or arthritic DJD discomfort. Patient is in no acute distress normal neurological exam , normal gait no lower extremity weaknesses normal sensation. No report of traum. patient has very minimal redness to the right
paralumbar region however was using ice yesterday this does not appear to be infected. No rash consistent with shingles. He denies any fever chills he is in no acute distress no recent procedures or injections. He is well-appearing. He is no
longer on Plavix he is only on aspirin for cardiac disease he is comfortable taking ibuprofen and Tylenol does not want steroids at this time to go home with. Will give 1 dose here and DC with muscle relaxer with close outpatient follow-up with
family doctor or orthopedics.
Chronic conditions affecting care:
Cardiac disease no ASA josiah no thinners
*Radiology
Radiology exam reviewed: radiology read reviewed
*Pulse Oximetry
SaO2: 98
Oxygen Mode of Delivery: Room air
Patient hypoxic: no
*Critical Care Note
Total Time (30-74mins, 75-104mins- exclusive of procedures): Not Applicable
ED Attending Note
-
Portions of this chart may have been created with voice recognition software.� Occasional wrong word or��sound alike� substitutions may have occurred due to the inherent limitations of voice recognition software.
Discharge Plan
Departure
Patient Disposition: Home (Routine Discharge)
Date of Disposition: 09/08/25
Time of Disposition: 09:46
Patient with high blood pressure during this ER visit?: Yes
Condition: Fair
Covid-19: Not Applicable
Discharge Problem:
Back pain, Acute hip pain
Instructions: Low Back Pain (DC), Muscle, joint, and bone pain (DC), BLOOD PRESSURE
Prescriptions:
New
cyclobenzaprine 10 mg tablet
10 mg PO Q8H PRN (Reason: muscle spasm) Qty: 10 0RF
No Action
metformin 500 mg tablet
500 mg PO BID
atorvastatin 80 mg tablet
80 mg PO QPM
ezetimibe 10 mg tablet
10 mg PO NOON
Jardiance 25 mg tablet
25 mg PO DAILY
Entresto 24-26 mg tablet
1 tab PO BID
furosemide 40 mg Tablet
40 mg PO DAILY Qty: 30 0RF
clopidogrel 75 mg Tablet
75 mg PO DAILY Qty: 30 0RF
aspirin 81 mg Tablet,Chewable
81 mg PO DAILY Qty: 0 0RF
metoprolol succinate 25 mg Tablet Extended Release 24 Hr
25 mg PO BID Qty: 60 0RF
Referrals:
Ky Mercado MD [Active, Orthopedics]
Suki Nagy CRNP [Family Provider, Family Practice]
Activity Restrictions/Additional Instructions:
As discussed alternate between ibuprofen and Tylenol for discomfort. You may take Flexeril, a muscle laxer as needed. This medication were sent to your pharmacy. This medication may cause drowsiness. No driving or drinking alcohol taking this
medication. Follow-up with your family doctor in the next 4 days and orthopedics if needed.
Your x-rays show mild degenerative changes. It is possible that this also may be a component of radiculopathy/sciatica. Return if any worsening of symptoms.
Interventions
Interventions:
*Risk Screen - Suicide Last Done: 09/08/25 07:11
*General Assessment Last Done: 09/08/25 07:11
*Neglect/Abuse Screening Last Done: 09/08/25 07:11
*ED COVID-19 Vaccine History Last Done: 09/08/25 07:11
*ED Influenza Vaccine History Last Done: 09/08/25 07:11
[facility] Fall Risk Assessment Tool Last Done: 09/08/25 08:52
*Nursing Disposition Last Done: 09/08/25 10:06
ED-Musculoskeletal Assessment Last Done: 09/08/25 08:56
Discharge Date and Time
Print Language: NEPALESE
[2025-09-08] MEDS: TYLENOL 1000 MG PO (08:48)
[2025-09-08] MEDS: LIDOCAINE 4% PATCH 1 PATCH TOPICAL (08:49)
[2025-09-08] MEDS: DECADRON 10 MG IM (08:49)
[2025-09-08 08:52] VITALS: BMI 28.1
[2025-09-08 08:56] VITALS: BP 130/89
[2025-09-08 10:06] VITALS: BP 130/89
== END 2025-09-08 10:06 | disposition home or self-care (01) ==
LOC: EMR 06:59
PROVIDERS: EMERGENCY PHYSICIAN Student in an Organized Health Care Education/Training Program; FAMILY PHYSICIAN Registered Nurse
DX: M54.50 Low back pain, unspecified (principal); M25.551 Pain in right hip; E11.9 Type 2 diabetes mellitus without complications; I11.0 Hypertensive heart disease with heart failure; I50.9 Heart failure, unspecified; E78.00 Pure hypercholesterolemia, unspecified; I25.2 Old myocardial infarction; Z79.82 Long term (current) use of aspirin; Z79.84 Long term (current) use of oral hypoglycemic drugs; Z95.1 Presence of aortocoronary bypass graft; Z95.5 Presence of coronary angioplasty implant and graft; Z83.3 Family history of diabetes mellitus
CPT/HCPCS: 99284; 96372; 72110; 73502